=== PATIENT | male | born 1980 | race Caucasian/White ===

== ENCOUNTER 2023-11-25 12:44 | Emergency (ER) | payer BC, SELFPAY ==
[2023-11-25 14:43] VITALS: BMI 35.5
[2023-11-25 14:50] VITALS: BP 154/90; PULSE 80; RESP 18; TEMP 37; O2SAT 99; BMI 35.5
--- NOTE | 2023-11-25 14:53 | XR_ITS ---
PROCEDURE INFORMATION: Exam: XR Right Foot Exam date and time: 11/25/2023 2:54 PM Age: 42 years old Clinical indication: Pain; Difficulty in walking and limp and swelling, leg or foot; Right; Additional info: Pain and swelling, no accident TECHNIQUE: Imaging protocol: Radiologic exam of the right foot. Views: 3 or more views. COMPARISON: No relevant prior studies available. FINDINGS: Bones/joints: Hallux valgus. Osteopenia. Soft tissues: Mild soft tissue swelling dorsal aspect of the forefoot IMPRESSION: 1. No evidence of acute osseous injury 2. Mild soft tissue swelling dorsal aspect of the forefoot
[2023-11-25 15:14] VITALS: BP 154/90; PULSE 80; RESP 18; TEMP 37; O2SAT 99
[2023-11-25 15:18] LABS: Uric Acid 5.5 mg/dl (3.5-8.5)
--- NOTE | 2023-11-25 15:38 | EXP.UTC ---
Discharge Plan Disposition Patient Disposition: Home, Self-Care Condition: Good Prescriptions Prescriptions: New cephalexin 500 mg tablet 500 mg PO QID 7 Days Qty: 28 0RF Referrals Follow up/Referrals: Indu Santos APRN [Primary Care Provider] - See instructions Activity Restrictions/Add. Instructions Additional Instructions/Restrictions: *Start antibiotic(s) immediately and be sure to take as ordered for the FULL length of time although you may be feeling better or start to see improvement in the next 24-48 hours *Monitor closely. Outlined redness so that you can monitor easier. Follow up immediately for new or worsening symptoms including but not limited to redness, swelling, streaking from site fever or chills. Over the counter Motrin and/or Tylenol if you can take them for pain *Warm compress 15 minutes 3-4 times day *Elevate extremity to help with swelling *Monitor Temp. Tylenol every 4 hours as needed and ibuprofen every 6 hours as needed (as long as your primary care doctor has told you that it is ok to take both. For fever, aches, pain. ER if no less that 101 despite Tylenol and ibuprofen ?Follow up with your family doctor/primary care physician in the next 48-72 hours if no improvement Clinical Impressions Clinical Impression: Cellulitis Qualifiers: Site of cellulitis: unspecified site Qualified Code(s): L03.90 - Cellulitis, unspecified Stand Alone Forms Stand Alone Forms: Work/School Release Instructions Patient Instructions: Cellulitis Discharge ED Provider: Kerri Guo [facility] General Stated complaint: Pain and swelling in R Foot Mode of Arrival: Ambulatory Source of Information: Patient Limitations: No Limitations Time Seen by Provider: 11/25/23 15:38 Description of Symptoms (Recalled from Triage Doc. by RN): PATIENT C/O REDNESS, SWELLING AND PAIN TO RIGHT FOOT X 2 WEEKS. NO KNOWN INJURY HEENT Symptoms (Recalled from RN notes): No Resp Symptoms (Recalled from RN notes): No Skin Symptoms (Recalled from RN notes): No MS Symptoms (Recalled from RN notes): Yes Functional Status (Recalled from RN notes): WNL History of Present Illness Provider Complaint: Patient states that for the last couple of weeks he has been having pain swelling and redness on and off that for the last couple of days has got worse States that hurts when he moves it certain ways or tries to walk on it Denies known injury Related Data Previous Rx's Medication Instructions Recorded cephalexin 500 mg tablet 500 mg PO QID 7 days #28 tabs 11/25/23 Allergies Allergy/AdvReac Type Severity Reaction Status Date / Time No Known Allergies Allergy Verified 11/25/23 14:56 Worker's Comp Is this a Worker's Comp case?: No [facility] Disclaimer: The information contained in this section may have been updated after the patient was seen, as this information can be updated by other users. Medical History (Updated 11/25/23 @ 16:31 by Kerri Guo APRN) Diabetes mellitus type 1 Hyperlipidemia Hypertension Surgical History (Updated 11/25/23 @ 14:57 by Pari Watkins RN) History of cholecystectomy Social History Smoking Status: Unknown if ever smoked alcohol intake: never current occupational status: employed Travel in the last 8 weeks: None ROS Obtained: Yes All systems reviewed & no additional complaints except as documented and Yes Systems reviewed as appropriate & no additional complaints except as documented Constitutional Constitutional: Reports system reviewed and no additional complaints, except as documented, Reports as per HPI, Denies body ache, Denies chills and Denies fever(s) ENT Ears, Nose, Mouth, and Throat: Reports system reviewed and no additional complaints, except as documented and Reports as per HPI Cardiovascular Cardiovascular: Reports system reviewed and no additional complaints, except as documented and Reports as per HPI Respiratory Respiratory: Reports system reviewed and no additional complaints, except as documented and Reports as per HPI Gastrointestinal Gastrointestingal: Reports system reviewed and no additional complaints, except as documented and as per HPI Musculoskeletal Musculoskeletal: Reports system reviewed and no additional complaints, except as documented and Reports as per HPI Comments: Pain, swelling, redness on an off for 2 weeks in right foot Physical Exam General General appearance: alert and in no apparent distress ENT ENT exam: Present mucous membranes moist Respiratory Respiratory exam: Present normal lung sounds bilaterally; Absent respiratory distress or wheezes Cardiovascular Cardiovascular exam: Present regular rate, normal rhythm and normal heart sounds Abdominal Exam Abdominal exam: Present soft and normal bowel sounds; Absent distention or tenderness Expanded Lower Extremity Exam Right: Knee exam: Present normal inspection and full ROM; Absent tenderness Lower leg exam: Present normal inspection and full ROM; Absent tenderness Ankle exam: Present normal inspection and full ROM; Absent tenderness Foot/toe exam: Present tenderness, swelling and erythema (mild no warmth); Absent abrasion, ecchymosis, deformity or puncture wound Neurovascular/Tendon exam: Present normal capillary refill; Absent pulse deficit or pallor Gait: observed and limited by pain Neurological Exam Neurological exam: Present alert, oriented X3 and normal gait Medical Decision Making Nash Inquiry Pt receiving controlled substance: No Nash was queried for this patient: No Vital Signs: 11/25/23 14:50 11/25/23 15:14 Temperature 98.6 F 98.6 F Temperature Source Oral Pulse Rate 80 Pulse Rate [Right Brachial] 80 Respiratory Rate 18 18 Blood Pressure 154/90 H Blood Pressure [Right Arm] 154/90 H Blood Pressure Mean [Right Arm] 111 Blood Pressure Source [Right Arm] Automatic Cuff Blood Pressure Position [Right Arm] Sitting 02 Sat by Pulse Oximetry 99 Oxygen Delivery Method Room Air Lab Data Lab results reviewed: Yes I reviewed the patient's lab results. Lab Results 11/25/23 14:51: Uric Acid 5.5 Orders (Tests/Meds): ORDERS Category Date Time Status XR foot RT min 3V Stat Exams 11/25/23 14:53 Taken Uric Acid Stat Lab 11/25/23 14:51 Completed Radiology Data #1: Image(s): Foot/Toes Image Reviewed: Yes I have reviewed radiologist's interpretation IMPRESSION: 1. No evidence of acute osseous injury 2. Mild soft tissue swelling dorsal aspect of the forefoot
== END 2023-11-25 16:46 | disposition home or self-care (01) ==
PROVIDERS: Emergency Provider Nurse Practitioner; PCP Nurse Practitioner
DX: L03.115 Cellulitis of right lower limb (principal); M79.671 Pain in right foot
CPT/HCPCS: 73630; 84550; 99204; 99212; G0463

== ENCOUNTER 2024-01-10 08:00 | Outpatient (RCR) | payer BC, SELFPAY | END 2024-02-20 17:00 | disposition home or self-care (01) | LOC: PT 08:00 | PROVIDERS: PCP Nurse Practitioner; Visit Provider Podiatrist Foot & Ankle Surgery | DX: M76.821 Posterior tibial tendinitis, right leg (principal); M76.71 Peroneal tendinitis, right leg; M79.661 Pain in right lower leg | CPT/HCPCS: 97010; 97014; 97035; 97110; 97112; 97116; 97163; 97530; G0283 ==

== ENCOUNTER 2024-01-28 12:08 | Outpatient (CLI) | payer BC, SELFPAY ==
--- NOTE | 2024-01-28 12:14 | XR_ITS ---
FINAL REPORT CLINICAL HISTORY: Lateral and medial right ankle/foot pain. Swelling. COMPARISON: None FINDINGS: RIGHT FOOT: Three views of the right foot were obtained. There is no acute fracture or dislocation. Hallux varus deformity is noted. There are mild degenerative changes. There is no soft tissue abnormality. IMPRESSION: Mild degenerative changes without acute bony abnormality. Reviewed, Interpreted and Dictated by Tristian Samuels III, MD Transcribed by Ana Luisa Cross Authenticated and . [facility]
--- NOTE | 2024-01-28 12:14 | XR_ITS ---
FINAL REPORT CLINICAL HISTORY: Lateral and medial right ankle/foot pain. Swelling. COMPARISON: None FINDINGS: RIGHT ANKLE: Three views of the right ankle were obtained. There is no acute fracture or dislocation. There is mild degenerative change. The ankle mortise is intact. Soft tissue swelling is noted. IMPRESSION: Degenerative change and soft tissue swelling without acute bony abnormality. Reviewed, Interpreted and Dictated by Tristian Samuels III, MD Transcribed by Ana Luisa Cross Authenticated and [facility]
[2024-01-28 16:08] LABS: Chloride 104 mmol/L (98-107)
[2024-01-28 16:09] LABS: Potassium 4.6 mmoL/L (3.5-5.1); Sodium 137 mmol/L (136-145)
[2024-01-28 16:11] LABS: Alanine Aminotransferase 45 U/L (12-78); Aspartate Amino Transferase 47 U/L (17-59); Blood Urea Nitrogen 13 mg/dl (9-20); Estimated Glomerular Filt Rate 106 ml/min (>60); GFR (African American) 128 ML/MIN (>60)
[2024-01-28 16:12] LABS: Albumin Level 4.3 g/dl (3.5-5.0); Albumin/Globulin Ratio 1.2 (1.1-1.8); Alkaline Phosphatase 103 U/L (38-126); Anion Gap 11.6 mEq/L (5-15); Bilirubin,Total 0.8 mg/dl (0.2-1.3); Calcium 9.4 mg/dl (8.4-10.2); Carbon Dioxide 26 mmol/L (22.0-30.0); Globulin 3.6 g/dL (1.3-3.2); Glucose 159 mg/dl (74-100); Total Protein,Serum 7.9 g/dl (6.3-8.2); Uric Acid 7.1 mg/dl (3.5-8.5)
[2024-01-28 16:29] LABS: Basophils # 0.1 K/mm3 (0-0.2); Basophils % 0.8 % (0.1-2.0); Eosinophils # 0.1 K/mm3 (0.0-0.4); Hematocrit 41.7 % (42.0-52.0); Hemoglobin 13.8 g/dL (14.1-18.0); Lymphocytes # 2.7 K/mm3 (0.7-4.5); Lymphocytes % 19.6 % (10-50); Mean Corpuscular HGB Conc 33.1 g/dL (31.8-35.4); Mean Corpuscular Volume 84.6 fl (80-94); Mean Platelet Volume 10.4 fl (7.4-10.4); Monocytes # 0.6 K/mm3 (0.1-1.0); Monocytes % 4.2 % (1.7-9.3); Neutrophils # 10.4 K/mm3 (1.8-7.8); Neutrophils % 74.4 % (37.0-80.0); Platelet Count 247 K/mm3 (142-424); Red Blood Count 4.93 M/mm3 (4.60-6.20); Red Cell Distribution Width 15.5 % (11.5-17.5)
[2024-01-28 16:40] LABS: C-Reactive Protein 13.9 mg/L (0-4)
[2024-01-28 16:42] LABS: Thyroid Stimulating Hormone 2.46 uIU/mL (0.465-4.68)
[2024-01-28 17:03] LABS: Erythrocyte Sedimentation Rate 26 mm/hr (0-15)
[2024-01-28 17:10] LABS: Hemoglobin A1C 7.4 % (4.0-6.0)
[2024-01-28 17:42] LABS: Vitamin B12 334 pg/mL (239-931)
[2024-01-28 17:59] LABS: Folate 7.67 ng/mL
[2024-01-29 08:18] LABS: RA Latex Turbid. <10.0 IU/mL (<14.0)
[2024-01-30 15:12] LABS: Antinuclear Antibodies, IFA Negative (.)
[2024-02-10 06:10] LABS: 1,25 Dihydroxy Vitamin D 52 pg/mL (.); 1,25-Dihydroxy, Vitamin D-2 <10 pg/mL (.); 1,25-Dihydroxy, Vitamin D-3 45 pg/mL (.)
== END 2024-01-28 23:59 ==
PROVIDERS: PCP Nurse Practitioner; Visit Provider Podiatrist
DX: M25.571 Pain in right ankle and joints of right foot (principal); M25.471 Effusion, right ankle; M79.671 Pain in right foot; E11.40 Type 2 diabetes mellitus with diabetic neuropathy, unspecified; I10 Essential (primary) hypertension; E78.5 Hyperlipidemia, unspecified; L03.115 Cellulitis of right lower limb; E66.01 Morbid (severe) obesity due to excess calories; Z68.41 Body mass index [BMI] 40.0-44.9, adult; Z79.899 Other long term (current) drug therapy; D72.829 Elevated white blood cell count, unspecified; Z79.84 Long term (current) use of oral hypoglycemic drugs
CPT/HCPCS: 36415; 73610; 73630; 80053; 82607; 82652; 82746; 83036; 84443; 84550; 85025; 85651; 86038; 86140; 86431

== ENCOUNTER 2024-02-20 12:31 | Outpatient (CLI) | payer BC, SELFPAY ==
--- NOTE | 2024-02-20 12:31 | CT_ITS ---
FINAL REPORT TECHNIQUE: Thin section axial CT images with coronal and sagittal reformats were performed of the right foot. This study was performed with techniques to keep radiation doses as low as reasonably achievable (ALARA). Individualized dose reduction techniques using automated exposure control or adjustment of mA and/or kV according to the patient''s size were employed. CLINICAL HISTORY: Evaluate for Charcot collapse COMPARISON: None FINDINGS: There are no fractures. The ankle mortise is intact. There are hypertrophic changes at the mid articular facet of the subtalar joint. The tarsal bones are osteopenic. There is no evidence of fragmentation or disorganization. There is no evidence of Charcot joint. There is no evidence of stress reaction. There are hammertoe deformities of the second through fifth digits. There are no masses or fluid collections. There are no soft tissue abnormalities. IMPRESSION: No acute abnormality. Reviewed, Interpreted and Dictated by Marshall Hilton MD Transcribed by Ana Luisa Cross Authenticated and . [facility]
--- NOTE | 2024-02-20 12:31 | CT_ITS ---
FINAL REPORT TECHNIQUE: Thin section axial CT images with coronal and sagittal reformats were performed of the right ankle. This study was performed with techniques to keep radiation doses as low as reasonably achievable (ALARA). Individualized dose reduction techniques using automated exposure control or adjustment of mA and/or kV according to the patient''s size were employed. CLINICAL HISTORY: evaluate for charcot collapse COMPARISON: None FINDINGS: There are no fractures. The ankle mortise is intact. There are hypertrophic changes at the medial articular facet of the subtalar joint. There is no evidence of fragmentation or disorganization. There are no masses or fluid collections. There are no soft tissue abnormalities. IMPRESSION: No acute process. Reviewed, Interpreted and Dictated by Marshall Hilton MD Transcribed by Ana Luisa Cross Authenticated and [facility]
--- NOTE | 2024-02-20 13:00 | US_ITS ---
FINAL REPORT CLINICAL HISTORY: decreased pulses, delayed CFT, previous smoker, HTN, hyperlipidemia, bilateral claudication, DM, morbid obesity COMPARISON: None FINDINGS: ANKLE-BRACHIAL PRESSURE INDICES Pressure indices are as follows: RIGHT LOWER EXTREMITY: Ankle-brachial pressure index: 1.2 Comments: Normal LEFT LOWER EXTREMITY: Ankle-brachial pressure index: 1.2 Comments: Normal IMPRESSION: No evidence of significant obstructive peripheral vascular disease of the lower extremities Reviewed, Interpreted and Dictated by Marshall Hilton MD Transcribed by Ana Luisa Cross Authenticated and [facility]
== END 2024-02-20 23:59 ==
LOC: RAD 12:31
PROVIDERS: PCP Nurse Practitioner; Visit Provider Podiatrist
DX: M14.671 Charcot's joint, right ankle and foot (principal); M25.571 Pain in right ankle and joints of right foot; L03.90 Cellulitis, unspecified; R60.0 Localized edema; G89.29 Other chronic pain
CPT/HCPCS: 73700; 93923

== ENCOUNTER 2024-03-05 08:52 | Outpatient (CLI) | payer BC, SELFPAY ==
--- NOTE | 2024-03-05 09:05 | XR_ITS ---
FINAL REPORT TECHNIQUE: Bone mineral density was calculated of the lumbar spine and hip. CLINICAL HISTORY: significant bone density changes on recent x-rays COMPARISON: None FINDINGS: Using L1-4, the bone mineral density of the spine is 1.136 g/cm2, corresponding to T-score of 0.4. Using the left hip, the bone mineral density of the femoral neck is 1.096 g/cm2, corresponding to a T-score of 1.2. Using the right hip, the bone mineral density of the femoral neck is 1.069 g/cm?, corresponding to a T-score of 0.2. NOTE: T-score: Standard deviation compared with peak bone mass of young adult mean. *Following the recommendations of the International Society of Bone densitometry, classification of hip BMD is based on the lower of two T-scores; total hip or femoral neck. IMPRESSION: Normal bone mineral density of the lumbar spine and bilateral hips. Reviewed, Interpreted and Dictated by Tristian Samuels III, MD Transcribed by Cynthia Torres Authenticated and [facility]
[2024-03-05 10:42] LABS: Basophils # 0.1 K/mm3 (0-0.2); Basophils % 0.9 % (0.1-2.0); Eosinophils # 0.2 K/mm3 (0.0-0.4); Eosinophils % 1.6 % (0.1-12.0); Hematocrit 43.1 % (42.0-52.0); Hemoglobin 14.2 g/dL (14.1-18.0); Lymphocytes # 2.7 K/mm3 (0.7-4.5); Lymphocytes % 19.2 % (10-50); Mean Corpuscular Volume 84.8 fl (80-94); Mean Platelet Volume 10.7 fl (7.4-10.4); Monocytes # 0.6 K/mm3 (0.1-1.0); Monocytes % 4.1 % (1.7-9.3); Neutrophils # 10.3 K/mm3 (1.8-7.8); Neutrophils % 74.2 % (37.0-80.0); Platelet Count 231 K/mm3 (142-424); Red Blood Count 5.08 M/mm3 (4.60-6.20); Red Cell Distribution Width 15.7 % (11.5-17.5); White Blood Count 13.9 K/mm3 (4.8-10.8)
[2024-03-05 11:16] LABS: Alanine Aminotransferase 43 U/L (12-78); Albumin Level 4.4 g/dl (3.5-5.0); Albumin/Globulin Ratio 1.3 (1.1-1.8); Alkaline Phosphatase 94 U/L (38-126); Anion Gap 12.5 mEq/L (5-15); Aspartate Amino Transferase 39 U/L (17-59); Bilirubin,Total 0.7 mg/dl (0.2-1.3); Blood Urea Nitrogen 16 mg/dl (9-20); Calcium 9.7 mg/dl (8.4-10.2); Carbon Dioxide 26 mmol/L (22.0-30.0); Chloride 101 mmol/L (98-107); Estimated Glomerular Filt Rate 106 ml/min (>60); GFR (African American) 128 ML/MIN (>60); Globulin 3.3 g/dL (1.3-3.2); Glucose 321 mg/dl (74-100); Potassium 4.5 mmoL/L (3.5-5.1); Sodium 135 mmol/L (136-145); Total Protein,Serum 7.7 g/dl (6.3-8.2)
[2024-03-05 11:24] LABS: C-Reactive Protein 3.5 mg/L (0-4)
[2024-03-05 11:25] LABS: Erythrocyte Sedimentation Rate 17 mm/hr (0-15)
== END 2024-03-05 23:59 | disposition home or self-care (01) ==
PROVIDERS: PCP Nurse Practitioner; Visit Provider Podiatrist
DX: M25.571 Pain in right ankle and joints of right foot (principal); M14.671 Charcot's joint, right ankle and foot; L03.90 Cellulitis, unspecified; G89.29 Other chronic pain; R60.0 Localized edema; Z79.899 Other long term (current) drug therapy
CPT/HCPCS: 36415; 77080; 80053; 85025; 85651; 86140

== ENCOUNTER 2024-03-17 07:18 | Outpatient (CLI) | payer BC, SELFPAY ==
--- NOTE | 2024-03-17 07:27 | MR_ITS ---
FINAL REPORT CLINICAL HISTORY: Evaluate for tendon tear, abscess, cyst, etc COMPARISON: None FINDINGS: Multiplanar and multisequence imaging of the right ankle was obtained with and without intravenous contrast. The bony structures are intact without evidence of fracture, bone bruise or marrow edema. No osteochondral lesion is identified. The ligaments are intact without evidence of injury. The flexor and extensor tendons are intact. The posterior plantar aponeurosis is intact. A moderate joint effusion is seen. The musculature is intact. There is no evidence of soft tissue mass or cyst. No abnormal contrast enhancement. IMPRESSION: Moderate joint effusion. Reviewed, Interpreted and Dictated by Marshall Hilton MD Transcribed by Ana Luisa Cross Authenticated and [facility]
[2024-03-17] MEDS: SODIUM CHLORIDE 0.9% 10ML FLUSH SYRINGE 10 ML IV (08:50)
[2024-03-17] MEDS: GADOTERIDOL INJ 17ML SYRINGE 30 ML IV (08:50)
== END 2024-03-17 23:59 | disposition home or self-care (01) ==
LOC: RAD 07:19
PROVIDERS: PCP Nurse Practitioner; Visit Provider Podiatrist
DX: M25.571 Pain in right ankle and joints of right foot (principal); G89.29 Other chronic pain; L03.115 Cellulitis of right lower limb; M14.671 Charcot's joint, right ankle and foot; M76.71 Peroneal tendinitis, right leg
CPT/HCPCS: 73723; A9576

== ENCOUNTER 2024-03-22 12:24 | Outpatient (CLI) | payer BC, SELFPAY ==
--- NOTE | 2024-03-22 12:46 | XR_ITS ---
PROCEDURE INFORMATION: Exam: XR Chest Exam date and time: 03/22/2024 12:46 PM Age: 43 years old Clinical indication: Screening exam; Pre-operative exam; Other: Pre op; Additional info: Preop testing. Having scope on right ankle. Non-smoker. Medicated for high BP. TECHNIQUE: Imaging protocol: Radiologic exam of the chest. Views: 2 views. Total images: 2 COMPARISON: No relevant prior studies available. FINDINGS: Lungs: Unremarkable. No consolidation. Pleural spaces: Unremarkable. No pleural effusion. No pneumothorax. Heart/Mediastinum: Unremarkable. No cardiomegaly. Bones/joints: Unremarkable. IMPRESSION: No acute findings.
--- NOTE | 2024-03-22 13:02 | ECG_ITS ---
APPROVED REPORT Exam: Resting ECG HR:72 bpm ECG Measurements Heart Rate 72 AXES VA 180 P 6 QRSd 104 QRS 14 QT 387 T 4 QTc 411 Conclusion SINUS RHYTHM NORMAL ECG UNCONFIRMED REPORT Electronically signed by : Jordan Bryant MD 03/23/2024 08:28:00
[2024-03-22 13:46] LABS: Chloride 104 mmol/L (98-107); Sodium 136 mmol/L (136-145)
[2024-03-22 13:47] LABS: Potassium 4.3 mmoL/L (3.5-5.1)
[2024-03-22 14:02] LABS: Basophils # 0.1 K/mm3 (0-0.2); Basophils % 0.6 % (0.1-2.0); Eosinophils # 0.2 K/mm3 (0.0-0.4); Eosinophils % 1.9 % (0.1-12.0); Hematocrit 40.8 % (42.0-52.0); Hemoglobin 13.5 g/dL (14.1-18.0); Lymphocytes # 1.9 K/mm3 (0.7-4.5); Lymphocytes % 19.3 % (10-50); Mean Corpuscular HGB Conc 33.1 g/dL (31.8-35.4); Mean Corpuscular Hemoglobin 27.8 pg (27.0-31.2); Mean Platelet Volume 10.5 fl (7.4-10.4); Monocytes # 0.4 K/mm3 (0.1-1.0); Monocytes % 4.2 % (1.7-9.3); Neutrophils # 7.2 K/mm3 (1.8-7.8); Platelet Count 198 K/mm3 (142-424); Red Blood Count 4.86 M/mm3 (4.60-6.20); Red Cell Distribution Width 15.9 % (11.5-17.5); White Blood Count 9.7 K/mm3 (4.8-10.8)
[2024-03-22 14:08] LABS: C-Reactive Protein 12.3 mg/L (0-4)
[2024-03-22 16:05] LABS: Erythrocyte Sedimentation Rate 21 mm/hr (0-15)
[2024-03-22 17:41] LABS: Alanine Aminotransferase 52 U/L (12-78); Albumin/Globulin Ratio 1.3 (1.1-1.8); Alkaline Phosphatase 93 U/L (38-126); Anion Gap 13.3 mEq/L (5-15); Aspartate Amino Transferase 49 U/L (17-59); Bilirubin,Total 0.7 mg/dl (0.2-1.3); Blood Urea Nitrogen 8 mg/dl (9-20); Calcium 9.3 mg/dl (8.4-10.2); Carbon Dioxide 23 mmol/L (22.0-30.0); Estimated Glomerular Filt Rate 123 ml/min (>60); GFR (African American) 149 ML/MIN (>60); Globulin 3.1 g/dL (1.3-3.2); Total Protein,Serum 7.1 g/dl (6.3-8.2)
[2024-03-22 17:56] LABS: Glucose 398 mg/dl (74-100)
== END 2024-03-22 23:59 | disposition home or self-care (01) ==
LOC: LAB 12:26
PROVIDERS: PCP Nurse Practitioner; Visit Provider Podiatrist
DX: Z01.818 Encounter for other preprocedural examination (principal)
CPT/HCPCS: 36415; 71046; 80053; 85025; 85651; 86140; 93005

== ENCOUNTER 2024-03-25 07:21 | Day surgery (SDC) | payer BC, SELFPAY ==
[2024-03-25] VITALS (10 sets, daily range): BP systolic 112–145; BP diastolic 70–94; PULSE 69–90; RESP 14–18; TEMP 36.1–43; O2SAT 93–98; BMI 41.5
[2024-03-25] MEDS: LACTATED RINGERS 1000ML 1,000 ML 25 ML IV (07:36)
[2024-03-25 07:47] LABS: POC Glucose,Bedside 270 (70-110)
[2024-03-25] MEDS: CEFAZOLIN SODIUM 2 GM in 0.9 % SODIUM CHLORIDE 100 ML IV (10:03)
--- NOTE | 2024-03-25 10:03 | P.PNANES_ITS ---
[facility] Disclaimer: The information contained in this section may have been updated after the patient was seen, as this information can be updated by other users. Medical History Diabetes mellitus type 1 Hyperlipidemia Hypertension Surgical History History of bilateral carpal tunnel release History of cholecystectomy Family History (Updated 03/25/24 @ 07:37 by Alan Morris RN) Other No significant family history Social History (Updated 03/25/24 @ 07:38 by Alan Morris RN) Smoking Status: Never smoker alcohol intake: never substance use type: denies use current occupational status: employed Travel in the last 8 weeks: Inside the [place] [facility] Anesthesia Checklist Patient Identification Patient Identification: Verbal (Name & ) Structural Data Admitted From: Home Planned Operative Procedure/s: r ankle arthro Consent for Planned Operative Procedure(s) Verified: Yes NPO Status Verified Time NPO: 00:00 Additional verifications Anesthesia Reactions: No Hx Blood Transfusions: No Blood Transfusion Reaction: No Airway Assessment Mallampati Score:: Class II C-Spine Mobility Assessed: Yes TMJ Mobility Assessed: Yes Dentition: Poor Dentition Neurological Assessment Level of Consciousness: Awake, Alert and Appropriate Anesthesia Plan Anesthesia Risk discussed: Yes Anesthesia Plan: Verified ASA Class: III Anesthesia Type: General w/block
--- NOTE | 2024-03-25 10:39 | P.PNANES_ITS ---
[facility] Anesthesia Record Part I Anesthesia Record I Intake, IV Amount: 1,700 Hydration: Adequate Estimated blood loss (mL): 0 Urine output (mL): 0 Blood Pressure: 130/70 SaO2: 95 Pulse Rate: 90 Airway Patency: Patent Respiratory Rate: 16 Temperature: 97.5 F Patient is:: Awake and Stable Stable to PACU at:: 10:35
--- NOTE | 2024-03-25 10:50 | P.OP_ITS ---
Date of procedure: 03/25/24 Pre-op Diagnosis:: Right ankle synovitis Right peroneal tenosynovitis Right ankle Charcot Post-op Diagnosis:: Same Procedure performed:: Right ankle arthroscopy with extensive debridement Right ankle synovectomy Right peroneal tenosynovectomy Right ankle fibula open bone biopsy Right foot calcaneus open bone biopsy Surgeon:: Maria A Jansen DPM ASPHALT MIXER:: Marko De Anesthesia: GETA and regional (Left popliteal block) Estimated blood loss (mL): 10 Clinical Note:: All risks and benefits were reviewed with the patient at the surgical planning visit. See H&P for details. Operative findings:: Right ankle had significant synovitis noted. There was no loose body or talus osteochondral defects noted via the scope. The peroneal tendons had synovitis around them but no obvious tear. Overall the soft tissue was rubbery and hard in texture. The tissue was pinkish and looked like crab meat. The calcaneus was soft and yellowish in appearance. Did not need a mallet to take the bone biopsy. The fibula was hard in texture and normal white bone color. Will send specimens to rule out soft tissue or bone infection. Given the degree of abnormality to the soft tissue, suspect some inflammatory reaction or autoimmune disease. Will discuss with patient at follow-up, likely refer to rheumatology. Operative note:: On this date and time patient was deemed an appropriate surgical candidate. With informed consent signed, the patient was given a pre-op regional block by anesthesia. Patient was taken to the operating theater. The patient was p ositioned supine. General anesthesia was induced. Tourniquet was applied to the right mid-calf. Lower extremities prepped and draped in normal sterile fashion. IV Ancef given. Right Ankle Arthroscopy with ankle synovectomy and extensive debridement: Typical landmarks were identified. The tourniquet was inflated at 225 mmHg. The ankle was distracted. An 18 gauge needle was used to concepcion anteriomedial portal. An 15 blade was used to make a skin incision medial to the TA tendon. Blunt dissection was carried down to capsule. An arthroscopic cannula was then inserted to the level of the bone with care taken to avoid the saphenous vein and nerve. The camera was inserted. Immediately synovitic tissue was identified. An 18 gauge needle was used to make the anterolateral portal. An 11 blade was used to make skin incision, blunt dissection with a hemostat down to capsule. A cannula was inserted. The ankle joint was then visualized but it was difficult with the stringy white fibers and synovitic tissue floating in the. There was a small scuff on the anterior lateral talar cartilage. No true osteochondral defect or fracture was noted. The defect was not large enough to microfracture. There was synovitis and scar tissue noted in the ankle joint. Arthroscopic debridement of scar and synovitic tissue was performed with ablator/shaver. The camera moved to the anterolateral portal and the joint was derided of scar and synovitic tissue. The instrumentation was removed. Distraction released. The wound was flushed. Skin incisions closed with a Nylon. Right peroneal tenosynovitis: A separate incision was made to the lateral ankle along the course of the peroneal tendons under the distal fibula. Full- thickness dissection down to the level of the tendons. The peroneus brevis/longus were identified. No tear or rupture noted. Synovitic tissue noted. Utilizing 15 blade and forceps the synovitic tissue was debrided from around the tendon. Excursion and range of motion was within normal limits. Wound was flushed. Layered closure with Vicryl and nylon. Open ankle bone biopsy: Next a separate incision was made over the distal fibula directly. Dissection down to the level of the bone. A Jamshidi was utilized to take a piece of the fibula for both culture and pathology. See operative findings. Skin flushed and closed with nylon. Open foot bone biopsy: Next a separate incision was made over the lateral calcaneus. Dissection full-thickness down to bone. A Jamshidi was utilized to take a piece of the heel bone for both culture and pathology. The specimen was soft and color was abnormal. See operative findings for details. Skin flushed and closed with nylon. Xeroform was applied, then a dry sterile dressing. The patient was awoken from anesthesia and transferred to recovery with vital signs stable and neurovascular status intact. He appeared to tolerate procedure and anesthesia well without complication. Discharge/Plan: D/C home today when ready and vital signs stable. Patient is to maintain posterior splint clean dry and intact. Ice behind the knee and elevate on two pillows. Non weight bearing to the right lower extremity. Patient has crutches and rolling knee scooter. Follow up with me in 1 week. Tourniquet time (min): 45 Condition: stable Disposition: same day Specimens:: Right ankle synovitis tissue culture Right ankle fibula bone culture Right foot calcaneus bone culture Pathology: Right ankle synovitis, Right ankle fibula bone, Right foot calcaneus bone Complications:: None
[2024-03-25 10:53] LABS: POC Glucose,Bedside 274 (70-110)
--- NOTE | 2024-03-25 10:57 | SUR.PHASEI ---
1044: Patient finger stick blood glucose 274. No action required at this time.
--- NOTE | 2024-03-27 13:38 | EXP.ANES.II ---
[facility] Anesthesia Record Part II Anesthesia Record Part II Discharge Time: 11:05 Destination: Surgical Day Care (OP Surgery) PACU nurse assessment reviewed?: Yes Patient Condition:: Good Anesthesia Complications:: None Swallowing reflex intact?: Yes Airway Patency: Patent Cyanosis?: No Blood Pressure: 125/72 SaO2: 93 Respiratory Rate: 16 Pulse Rate: 72 Temperature: 97.5 F Mental Status: Alert & Oriented Pain level:: 0 Nausea and/or vomitting:: None Intake, IV Amount: 0 Hydration: Adequate
[2024-03-27 13:39] VITALS: BP 125/72; PULSE 72; RESP 16; TEMP 36.4; O2SAT 93
--- NOTE | 2024-03-27 13:41 | P.PNANES_ITS ---
[facility] Anesthesia Record Part II Anesthesia Record Part II Discharge Time: 11:05 Destination: Surgical Day Care (OP Surgery) PACU nurse assessment reviewed?: Yes Patient Condition:: Good Anesthesia Complications:: None Swallowing reflex intact?: Yes Airway Patency: Patent Cyanosis?: No Blood Pressure: 125/72 SaO2: 93 Respiratory Rate: 16 Pulse Rate: 72 Temperature: 97.5 F Mental Status: Alert & Oriented Pain level:: 0 Nausea and/or vomitting:: None Intake, IV Amount: 0 Hydration: Adequate
[2024-03-27 13:42] VITALS: BP 125/72; PULSE 72; RESP 16; TEMP 36.4; O2SAT 93
== END 2024-03-25 11:33 | disposition home or self-care (01) ==
PROVIDERS: PCP Nurse Practitioner; Visit Provider Podiatrist
PROC: (CPT 29895; principal; 2024-03-25 09:00)
DX: M76.71 Peroneal tendinitis, right leg (principal); M65.871 Other synovitis and tenosynovitis, right ankle and foot; M25.571 Pain in right ankle and joints of right foot; I10 Essential (primary) hypertension; E78.5 Hyperlipidemia, unspecified; M14.671 Charcot's joint, right ankle and foot; E11.40 Type 2 diabetes mellitus with diabetic neuropathy, unspecified; Z79.899 Other long term (current) drug therapy; Z79.84 Long term (current) use of oral hypoglycemic drugs
CPT/HCPCS: 29895; 27626; 20220; 20225; 82962; 88304; 96374; J0690; J2405

== ENCOUNTER 2024-05-26 16:13 | Outpatient (POV) | payer BC, SELFPAY | END 2024-05-26 23:59 | disposition home or self-care (01) | LOC: SC 16:13 | PROVIDERS: PCP Nurse Practitioner; Visit Provider Dermatology | DX: Z00.00 Encounter for general adult medical examination without abnormal findings (principal) ==

== ENCOUNTER 2024-06-04 08:45 | Outpatient (CLI) | payer BC, SELFPAY ==
--- NOTE | 2024-06-04 08:45 | CA_ITS ---
FINAL REPORT TECHNIQUE: Color Doppler, duplex Doppler and compression sonography of the right lower extremity venous system was performed. CLINICAL HISTORY: Right Lower Extremity Swelling, 1 month post right boot use for 3-4months FINDINGS: There is no evidence of deep venous thrombosis from the level of the groin to the calf. The veins are patent and compressible. IMPRESSION: No evidence of deep venous thrombosis right lower extremity. Reviewed, Interpreted and Dictated by Tristian Samuels III, MD Transcribed by Juani Howard Authenticated and [facility]
== END 2024-06-04 23:59 | disposition home or self-care (01) ==
LOC: RT 08:45
PROVIDERS: PCP Nurse Practitioner; Visit Provider Podiatrist
DX: R60.9 Edema, unspecified (principal); M79.661 Pain in right lower leg; Z98.890 Other specified postprocedural states
CPT/HCPCS: 93971